=== PATIENT | male | born 1945 | race Caucasian/White ===

== ENCOUNTER 2017-02-06 10:12 | Emergency (ER) | payer MEDICARE, BC ==
[~2017-02-06] VITALS: Ht 177.8 cm; Wt 106.8 kg
[~2017-02-06 10:12] MED LIST: ASPIR-LOW81 MG PO; ASPIR-LOX325 MG PO; ASPIRIN 32325 MG/TAB PO; CHONDROITIN SUL PO; CIPRO 500MG TA500 MG PO; CRESTOR5 MG PO; FLOMAX 0.40.4 MG/CAP PO; LODOSYN 25MG25 MG PO; LOPRESSOR 225 MG/TAB PO; MEGA RED; METOPROLOL SUCC25 M1 PO; MULTIPLE VITAMI1 CAP PO; NIACIN 100100 MG/TAB PO; NORCO 325 MG-51 TAB PO; PERCOCET 325 MG1 TA2 PO; PHENERGAN 25 TA25 MG PO; PHENERGAN25 MG RC; PRINIVIL10 MG PO; SENOKOT S 50 MG1 TAB PO; SINGULAIR; SUPER EPA 1201200 MG PO; VIT B 12 IM; ZESTRIL2.5 MG PO; ZETIA10 MG PO; [UNRECOGNIZED DRUG - OTHER]; b-12; glucosamine
[2017-02-06 10:17] VITALS: TEMP 97.8
[2017-02-06] MEDS ORDERED: SINEMET 25/101 UDTAB PO (10:47)
[2017-02-06] MEDS ORDERED: CYANOCOBAL1000 MCG/M IM (10:50)
[2017-02-06] MEDS ORDERED: ZESTRIL 5MG5 MG PO (10:51)
[2017-02-06] MEDS ORDERED: AZILECT1 MG PO (10:54)
[2017-02-06] MEDS ORDERED: PRILOSEC 20MG20 MG PO (10:54)
[2017-02-06] MEDS ORDERED: ASPIRIN 32325 MG/TAB PO (10:55)
[2017-02-06] MEDS ORDERED: CRESTOR 10MG10 MG PO (10:55)
[2017-02-06] MEDS ORDERED: DESYREL 100MG100 MG PO (11:14)
[2017-02-06] MEDS ORDERED: MYRBETR50MG PO (11:15)
[2017-02-06] MEDS ORDERED: GLUCOSAMINE & C1 CA2 PO (11:18)
[2017-02-06] MEDS ORDERED: OMEGA-3 1000 MG1 CAP PO (11:19)
[2017-02-06] MEDS ORDERED: MEGA MULTIVITAM1 TAB PO (11:19)
[2017-02-06 12:38] VITALS: BP 133/66; PULSE 65
== END 2017-02-06 12:42 | disposition home or self-care (01) ==
LOC: COL.ER 10:12
DX: S50.11XA Contusion of right forearm, initial encounter (principal); G20 Parkinson's disease; E78.5 Hyperlipidemia, unspecified; Z87.442 Personal history of urinary calculi; Z79.82 Long term (current) use of aspirin; W17.89XA Other fall from one level to another, initial encounter; Y92.009 Unspecified place in unspecified non-institutional (private) residence as the place of occurrence of the external cause

== ENCOUNTER 2020-06-13 13:25 | Outpatient (CLI) | payer MEDICARE, BC ==
[2020-06-13] VITALS (7 sets, daily range): BP systolic 109–114; BP diastolic 75–89; PULSE 78–79; TEMP 97.4–98
[~2020-06-13] VITALS: Ht 177.8 cm; Wt 100.0 kg
[~2020-06-13 13:25] MED LIST changes: +ASPIRIN E.C. 8181 MG PO; +AZILECT1 MG PO; +CRESTOR 10MG10 MG PO; +CYANOCOBAL1000 MCG/M IM; +DESYREL 100MG100 MG PO; +GLUCOSAMINE & C1 CA2 PO; +MEGA MULTIVITAM1 TAB PO; +MYRBETR50MG PO; +OMEGA-3 1000 MG1 CAP PO; +PRILOSEC 20MG20 MG PO; +SINEMET 25/101 UDTAB PO; -SINGULAIR; +SINGULAIR 110 MG/TAB PO; +ZESTRIL 5MG5 MG PO
[2020-06-13] MEDS ORDERED: MYRBETR50MG PO (16:03)
[2020-06-13] MEDS ORDERED: AZILECT1 MG PO (16:03)
[2020-06-13] MEDS ORDERED: ZOLOFT 50MG50 MG PO (16:04)
[2020-06-13] MEDS ORDERED: SYMMETREL100 MG PO (16:04)
[2020-06-13] MEDS ORDERED: EXELON3 MG PO (16:05)
[2020-06-13] MEDS ORDERED: GLUCOSAMINE & C1 CA2 PO (16:06)
[2020-06-13] MEDS ORDERED: OMEGA-3 1000 MG1 CAP PO (16:06)
--- NOTE | 2020-06-13 17:11 | NUR ---
Pt remained in [facility] for extended time frame only because his had tested positive for covid and had received orders for [facility] infusion while pt was receiving his. It was decided that his would get infusion today, instead of returning from out of town tomorrow. Pt tolerated infusion without issue. He was assisted out to car by wheelchair. IV was DC'd with catheter intact prior to departing.
== END 2020-06-13 17:13 | disposition home or self-care (01) ==
LOC: EUO 13:25
DX: U07.1 COVID-19 (principal)

== ENCOUNTER → 2023-10-09 | Outpatient (CLI) | payer MEDICARE ==
[~2023-10-09] MED LIST changes: +EXELON3 MG PO; +SYMMETREL100 MG PO; +ZOLOFT 50MG50 MG PO
[2023-10-09 13:24] LABS: COLLECTION METHOD CLEAN CATCH
[2023-10-09 13:41] LABS: PH 5.5 (5.0-8.5); URINE APPEARANCE CLEAR (CLEAR/HAZY); URINE BLOOD NEGATIVE (NEGATIVE); URINE COLOR Dark Yellow (YELLOW); URINE GLUCOSE NEGATIVE (NEGATIVE); URINE KETONE 1+ (NEGATIVE); URINE NITRATE NEGATIVE (NEGATIVE); URINE PROTEIN(semi-quant) NEGATIVE (NEGATIVE)
== END ==
LOC: ZCOL.LAB 11:54
PROVIDERS: Internal Medicine
DX: N39.0 Urinary tract infection, site not specified (principal)